=== PATIENT | male | born 1945 | race Caucasian/White ===

== ENCOUNTER 2017-09-22 07:34 | Emergency (ER) | payer MEDICARE ==
[2017-09-22 07:53] VITALS: BP 136/82
--- NOTE | 2017-09-22 07:56 | UC ---
Throat Pain/Nasal Edwin HPI - HPI Summary HPI Summary: 71 yo male presents with left ear decreased hearing. He says that he has a history of cerumen impaction and has been using OTC ear wax softening drops a lot at home, but still gets a build up of wax. Some pain to left ear. Denies fever, chills, sore throat, headache, dizziness. - History of Current Complaint Chief Complaint: UCEar Stated Complaint: EAR COMPLAINT Time Seen by Provider: 09/22/17 07:56 Hx Obtained From: Patient Onset/Duration: Gradual Onset Pain Intensity: 0 - Allergies/Home Medications Allergies/Adverse Reactions: Allergies Allergy/AdvReac Type Severity Reaction Status Date / Time No Known Allergies Allergy Verified 09/22/17 07:54 PMH/Surg Hx/FS Hx/Imm Hx Previously Healthy: Yes Cardiovascular History: Hypertension Respiratory History: COPD - Surgical History Surgical History: Yes Surgery Procedure, Year, and Place: RT ROTOCUFF SURGERY 2013,[facility] HAND SURGERY, [facility] ROTATOR CUFF SURGERY - Family History Known Family History: Positive: Hypertension - Social History Occupation: Retired Lives: With Family Alcohol Use: Rare Substance Use Type: None Smoking Status (MU): Never Smoked Tobacco Have You Smoked in the Last Year: No - Immunization History Most Recent Influenza Vaccination: FALL 2013 Most Recent Tetanus Shot: 2005 Most Recent Pneumonia Vaccination: UP TO DATE Review of Systems Constitutional: Negative Skin: Negative Eyes: Negative ENT: Ear Ache Respiratory: Negative Cardiovascular: Negative Neurovascular: Negative Neurological: Negative Psychological: Negative All Other Systems Reviewed And Are Negative: Yes Physical Exam - Summary Physical Exam Summary: GENERAL: NAD. WDWN. No pain distress. SKIN: No rashes, sores, lesions, or open wounds. HEENT: Head: AT/NC Eyes: EOM intact. Conjunctiva clear without inflammation or discharge. Ears: Hearing grossly normal. Right TM intact, no bulging, erythema , or edema. Left TM occluded by cerumen. Nose: Nasal mucosa pink and moist. NTTP maxillary and frontal sinus. Throat: Posterior oropharynx without exudates, erythema, or tonsillar enlargement. Uvula midline. NECK: Supple. Nontender. No lymphadenopathy. CHEST: CTAB. No r/r/w. No accessory muscle use. Breathing comfortably and in no distress. CV: RRR. Without m/r/g. Pulses intact. Brisk cap refill. NEURO: Alert. CN II-XII grossly intact. PSYCH: Age appropriate behavior. Triage Information Reviewed: Yes Vital Signs: Initial Vital Signs Temp 99.9 F 09/22/17 07:52 Pulse 79 09/22/17 07:52 Resp 12 09/22/17 07:52 BP 136/82 09/22/17 07:52 Pulse Ox 99 09/22/17 07:52 Throat Pain/Nasal Course/Dx - Course Course Of Treatment: Cerumen disimpaction left ear performed. Cerumen removed pt tolerated well. Left TM intact, no bulging, erythema, or edema. - Differential Dx/Diagnosis Provider Diagnoses: Cerumen impaction Discharge - Sign-Out/Discharge Documenting (check all that apply): Discharge/Admit/Transfer - Discharge Plan Condition: Stable Disposition: HOME Patient Education Materials: Cerumen Impaction (ED) Referrals: Pedro Williamson MD [Primary Care Provider] - Additional Instructions: If you develop a fever, shortness of breath, chest pain, new or worsening symptoms - please call your PCP or go to the ED. - Billing Disposition and Condition Condition: STABLE Disposition: HOME
== END 2017-09-22 08:35 | disposition home or self-care (01) ==
LOC: UCEAST 07:34
DX: H61.22 Impacted cerumen, left ear (principal); I10 Essential (primary) hypertension; J44.9 Chronic obstructive pulmonary disease, unspecified
CPT/HCPCS: 99212; G0463